=== PATIENT | male | born 1995 | race African-American/Black ===

== ENCOUNTER 2018-03-30 17:20 | Emergency (ER) | payer OTHER ==
[2018-03-30 19:05] LABS: AMORPHOUS SEDIMENT RFX MODERATE (NEGATIVE); KETONE, URINE AUTO RFX NEGATIVE (NEGATIVE); LEUKOCYTE ESTERASE UR AUTO RFX NEGATIVE (NEGATIVE); MUCUS, URINE RFX SMALL (NEGATIVE); NITRITE, URINE AUTO RFX NEGATIVE (NEGATIVE); RBC, URINE AUTO RFX 36 /HPF (0-3); SPECIFIC GRAVITY UR AUTO RFX 1.018 (1.002-1.035); SQUAM EPITHELIAL CELL UR AURFX 0 /HPF (0-6); WBC, URINE AUTO RFX 3 /HPF (0-3)
[2018-03-30 20:29] LABS: CHLAMYDIA DNA AMPLIFICATION POSITIVE (NEGATIVE); GC DNA AMPLIFICATION NEGATIVE (NEGATIVE)
[2018-03-30] MEDS ORDERED: LIDOCAINE 1% MDV 20ML VIAL As Ordered ×2 (20:44)
[2018-03-30] MEDS: cefTRIAXone SOD 1 GM VIAL (J0696) IM ×2 (20:45)
[2018-03-30] MEDS: IBUPROFEN 600 MG TAB PO ×2 (20:53)
== END 2018-03-30 21:36 | disposition home or self-care (01) ==
LOC: M ED 17:20
DX: Z20.2 Contact with and (suspected) exposure to infections with a predominantly sexual mode of transmission (principal); N50.9 Disorder of male genital organs, unspecified
CPT/HCPCS: J0696

== ENCOUNTER 2018-07-17 15:17 | Emergency (ER) | payer OTHER ==
[2018-07-17 20:58] LABS: CHLAMYDIA DNA AMPLIFICATION NEGATIVE (NEGATIVE); GC DNA AMPLIFICATION NEGATIVE (NEGATIVE)
== END 2018-07-17 17:44 | disposition home or self-care (01) ==
LOC: M ED 15:17
DX: N48.1 Balanitis (principal); S30.812A Abrasion of penis, initial encounter; W23.0XXA Caught, crushed, jammed, or pinched between moving objects, initial encounter; Y92.89 Other specified places as the place of occurrence of the external cause
CPT/HCPCS: 87252

== ENCOUNTER 2019-07-16 15:11 | Emergency (ER) | payer OTHER ==
[~2019-07-16] VITALS: Ht 175.3 cm; Wt 76.8 kg
[~2019-07-16 15:11] MED LIST: ACYC400T PO; BACI500O8 TOP; DOXY-350 PO
[2019-07-16 15:12] VITALS: BP 132/60
== END 2019-07-16 16:21 | disposition left against medical advice (07) ==
LOC: M ED 15:11
DX: Z53.21 Procedure and treatment not carried out due to patient leaving prior to being seen by health care provider (principal)

== ENCOUNTER 2019-08-09 10:15 | Emergency (ER) | payer OTHER ==
[~2019-08-09] VITALS: Ht 177.8 cm; Wt 74.1 kg
--- NOTE | 2019-08-09 11:29 | REP ---
Head CT without contrast: History: Trauma. Comparison study: No comparison study. CT findings: Bone window settings demonstrate an intact bony calvarium. There is no evidence of skull fracture or incidental bony calvarial lesion. The visualized paranasal sinuses appear clear. No intraorbital abnormality is seen. On soft tissue window setting images; the lateral, third, and fourth ventricles are normal in size and position. Pardo-white differentiation pattern is normal above and below the tentorium. There are is no evidence of intracranial hemorrhage. No mass, edema, infarction, or midline shift is seen. No extra-axial fluid collection is appreciated. Impression: Negative noncontrast head CT. Electronically Signed by Jamie Meier MD 08/09/2019 11:21 A
--- NOTE | 2019-08-09 11:31 | REP ---
Maxillofacial CT study without contrast: History: Trauma. Findings: No mandibular fracture is appreciated. There is a 1 cm mucous retention cyst in the right maxillary sinus along with some mild mucosal thickening. Paranasal sinuses are otherwise clear. Orbital and paranasal sinus margins are intact. Zygomatic arches are intact. No maxillary fracture is seen. The nasal bone and inferior maxillary spine appear intact. No intraorbital or other facial hematoma is appreciated. Impression: Mild mucosal thickening in the maxillary sinuses. No traumatic abnormality noted. Electronically Signed by Jamie Meier MD 08/09/2019 11:23 A
[2019-08-09 12:44] VITALS: BP 130/84
== END 2019-08-09 12:44 | disposition home or self-care (01) ==
LOC: M ED 10:15
DX: S05.12XA Contusion of eyeball and orbital tissues, left eye, initial encounter (principal); Y04.0XXA Assault by unarmed brawl or fight, initial encounter; Y92.9 Unspecified place or not applicable; Y99.8 Other external cause status

== ENCOUNTER 2021-02-19 09:30 | Emergency (ER) | payer OTHER ==
[~2021-02-19] VITALS: Ht 177.8 cm; Wt 69.7 kg
[~2021-02-19 09:30] MED LIST changes: +ACYC1TAB PO; -ACYC400T PO
[2021-02-19 11:00] LABS: HEMATOCRIT 39.6 % (42.0-52.0); HEMOGLOBIN 13.2 g/dl (13.5-17.5); MEAN CORPUSCULAR HEMOGLOBIN 29.3 pg (27.0-33.0); MEAN CORPUSCULAR HGB CONC 33.3 g/dl (32.0-36.5); PLATELET COUNT, AUTOMATED 378 10^3/uL (150-450); WHITE BLOOD COUNT 9.4 10^3/uL (4.0-10.0)
[2021-02-19] MEDS ORDERED: ISOVUE-370 76% 100ML VIAL As Ordered ONE (11:20)
[2021-02-19 11:26] LABS: ALBUMIN 3.9 GM/DL (3.2-5.2); ATYPICAL LYMPH 3 % (0-5); BILIRUBIN,DIRECT 0.1 MG/DL (0.0-0.2); BILIRUBIN,TOTAL 0.4 MG/DL (0.2-1.0); EOSINOPHILS 5 % (0-3); LYMPHOCYTES 27 % (16-44); MONOCYTES 5 % (0-5); NEUTROPHILS 59 % (28-66); PLATELET ESTIMATE NORMAL (NORMAL); TOTAL PROTEIN 7.1 GM/DL (6.4-8.2)
--- NOTE | 2021-02-19 11:53 | REP ---
INDICATION: bloody stools since Dec, LLQ pain, + on rectal exam. COMPARISON: None. TECHNIQUE: Abdomen/pelvis CT with IV contrast, without bowel contrast. FINDINGS: The visualized lung ko are unremarkable. The hepatic parenchyma, gallbladder, pancreas and spleen are normal size, homogeneous and otherwise unremarkable. The adrenals and kidneys are unremarkable. The abdominal aorta is unremarkable. There is no periaortic adenopathy or mass. There is a minimal volume of intraperitoneal and subcutaneous body fat tissue planes. There is no bowel distention or obstruction. There is wall thickening and mild enhancement of the descending colon and sigmoid colon. This is nonspecific but can represent infectious versus inflammatory colitis in the appropriate clinical setting. Pelvis: The appendix is unremarkable. There is no ascites or adenopathy. There is an ovoid cyst-like structure at the base of the penis measuring 30 x 11 mm, possibly fluid in the penile urethra. IMPRESSION: Wall thickening and slight enhancement of the descending colon and sigmoid colon, nonspecific, but can represent infectious versus inflammatory colitis in the appropriate clinical setting. Ovoid fluid collection at the base of the penis, cyst versus fluid in the penile urethra. No ascites or adenopathy. Minimal intraperitoneal and subcutaneous body fat. <Electronically signed by Mani Caballero > 02/19/21 [id number]
[2021-02-19 13:04] VITALS: BP 144/89
== END 2021-02-19 13:07 | disposition home or self-care (01) ==
LOC: M ED 09:30
DX: K62.5 Hemorrhage of anus and rectum (principal); K63.89 Other specified diseases of intestine; N48.89 Other specified disorders of penis; R63.4 Abnormal weight loss; Z86.19 Personal history of other infectious and parasitic diseases
CPT/HCPCS: 74177; 80047; 80076; 85025; 87505; 99284; Q9967

== ENCOUNTER 2021-02-25 18:15 | Inpatient (IN) | payer OTHER ==
[~2021-02-25] VITALS: Ht 177.8 cm; Wt 79.6 kg
[2021-02-25] MEDS ORDERED: DICYCLOMINE 10 MG CAP PO ONE (20:20)
[2021-02-25 21:28] LABS: HEMOGLOBIN 11.5 g/dl (13.5-17.5); MEAN CORPUSCULAR HEMOGLOBIN 29.4 pg (27.0-33.0); MEAN CORPUSCULAR HGB CONC 32.9 g/dl (32.0-36.5); MEAN CORPUSCULAR VOLUME 89.5 fl (80.0-96.0); PLATELET COUNT, AUTOMATED 376 10^3/uL (150-450); RED BLOOD COUNT 3.91 10^6/uL (4.30-6.10); WHITE BLOOD COUNT 12.2 10^3/uL (4.0-10.0)
[2021-02-25 21:49] LABS: ATYPICAL LYMPH 2 % (0-5); BASOPHILS 1 % (0-1); EOSINOPHILS 5 % (0-3); LYMPHOCYTES 18 % (16-44); MONOCYTES 4 % (0-5); NEUTROPHILS 70 % (28-66); PLATELET ESTIMATE NORMAL (NORMAL)
[2021-02-25] MEDS ORDERED: metroNIDAZOLE (FLAGYL) 500MG TABLET PO ONE (22:00)
[2021-02-25] MEDS ORDERED: CIPROFLOXACIN 500MG TABLET PO ONE (22:00)
[2021-02-25] MEDS ORDERED: ISOVUE-370 76% 100ML VIAL As Ordered ONE (22:48)
--- NOTE | 2021-02-25 22:50 | HPEPDOC ---
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 He was found to have E.coli in Nov but continued to have episodes of bloody stools despite clearing the infection. [facility] he stopped in [place] and then [place] prior to returning to the area last . Last Monday he presented to the ER w concerns that he still has bloody diarrhea. He had a GI panel done that was unremarkable, and was referred to see GI on an out patient basis. Today he returned because over the last day he has had nausea, 8-9 episodes of BRBPR and 3/10 in severity lower abdominal pain. He denies having f/c/v. Despite a good appetite he has lost 16 lbs over the last 4 months. REVIEW OF SYSTEMS: 12-point review of systems negative except as listed in HPI PAST MEDICAL/ SURGICAL HISTORY: reviewed none SOCIAL HISTORY: denies smoking, in the FAMILY HISTORY: reviewed none ALLERGIES: Please see below. HOME MEDICATIONS: Please see below. PHYSICAL EXAMINATION: Vital Signs Date Time Temp Pulse Resp B/P (MAP) Pulse Ox O2 Delivery O2 Flow Rate FiO2 02/25/21 18:16 98.9 90 20 171/91 (117) 100 Room Air GENERAL APPEARANCE: well nourished and developed/ NAD HEENT: EOMI / no scleral icterus / MMM&P CARDIOVASCULAR: RRR/NMRG LUNGS: CTAB on RA ABDOMEN: flat/ soft / tender w palpation of lower abdomen / no rebound tenderness MUSCULOSKELETAL: ROMIx 4 INTEGUMENT: not flushed or diaphoretic NEUROLOGICAL: CN 2-12 intact / speech not dysarthric PSYCHIATRIC: A&Ox 3/ able to understand and follow all commands LABORATORY DATA: 02/25/21 20:19 IMAGING: CT abd/pelvis IMPRESSION: Nonspecific colitis, as described above. MICROBIOLOGY: GI panel 02/19/21 neg / Respiratory panel neg ASSESSMENT: is a 25 yr old M who recently returned from [facility] [place] who has been having BRBPR for several months along with lower abdominal pain and weight loss; he was found to have an acute drop in his Hg and will be admitted for evaluation of acute blood loss anemia. PLAN: 1 Acute blood loss anemia 2/2 GI bleed Plan: admit to medical floor / check orthostats / CLD w IVF / f/u serial Hg prior to determining if we need to consult Gen surg / type & screen / f/u iron studies / start PPI 40mg IV BID for 72 H, then switch to PO after 72 H (to decrease rate of re-bleeding) DVT px w SCDs Dispo: home after at least 2 midnights stay Late entry 455am # SIRS vs Sepsis 2/2 colitis Overnight the patient developed tachycardia. He also had leukocytosis Plan: increase rate of IVF/ start Zosyn / f/u blood cx & lactic acid / f/u fecal calprotectin (suspect he may have IBD) Home Medications Scheduled Budesonide (Budesonide EC) 3 Mg Capdr...er, 3 CAP PO ASDIRECTED 9mg daily for 4weeks, then 6mg daily for 4 weeks, then 3mg daily for 4 weeks. Ciprofloxacin HCl (Cipro) 500 Mg Tablet, 1 TAB PO BID Famotidine (Famotidine) 40 Mg Tablet, 1 TAB PO DAILY Ferrous Sulfate (Ferrous Sulfate) 325 Mg Tablet.dr, 1 TAB PO DAILY Metronidazole (Flagyl) 500 Mg Tablet, 500 MG PO BID Allergies Coded Allergies: No Known Drug Allergies (Verified Allergy, Unknown, 07/16/19) A-FIB/CHADSVASC A-FIB History Current/History of A-Fib/PAF?: No Current PO Anticoag Therapy: No BERNABE BARNETT MD Feb 25, 2021 22:49
[2021-02-25] MEDS: NS 1,000 ML IV SCH (22:59)
[2021-02-25 23:11] LABS: PERCENT SATURATION 7.9 % (19.7-50.0)
--- NOTE | 2021-02-25 23:32 | REPVR ---
PROCEDURE INFORMATION: Exam: CT Abdomen And Pelvis With Contrast Exam date and time: 02/25/2021 10:53 PM Age: 25 years old Clinical indication: Abdominal pain; Localized; Left lower quadrant (llq); Additional info: Llq pain TECHNIQUE: Imaging protocol: Computed tomography of the abdomen and pelvis with contrast. Axial, coronal and sagittal reformatted images were created and reviewed. Radiation optimization: All CT scans at this facility use at least one of these dose optimization techniques: automated exposure control; mA and/or kV adjustment per patient size (includes targeted exams where dose is matched to clinical indication); or iterative reconstruction. Contrast material: ISOVUE 370; Contrast volume: 100 ml; Contrast route: INTRA-ARTERIAL (ARTERIAL); COMPARISON: CT ABD/PEL W/IV CONTRAST ONLY 02/19/2021 11:24 AM FINDINGS: Liver: Unremarkable. Gallbladder and bile ducts: No radiodense gallstones. No biliary ductal dilatation. Pancreas: Unremarkable. Spleen: Unremarkable. Adrenal glands: Normal. No mass. Kidneys and ureters: No mass. No radiodense calculi. No hydronephrosis. Stomach and bowel: Moderate colonic wall thickening with associated mural and pericolonic, extending from the mid transverse colon distally. No obstruction. No pneumatosis. Appendix: Normal. Intraperitoneal space: No free fluid. No organized fluid collection. No free air. Vasculature: Unremarkable. No aneurysm. Lymph nodes: No pathologically enlarged lymph nodes. Urinary bladder: Unremarkable as visualized. Reproductive: Unremarkable. Bones/joints: No acute osseous abnormality. Soft tissues: Unremarkable. IMPRESSION: Nonspecific colitis, as described above. Electronically signed by: Rico Plata On 02/25/2021 23:33:06 PM
[2021-02-26 00:41] VITALS: BP 141/75
[2021-02-26 02:22] VITALS: BP_SYST 110; BP_SYST 134; BP_DIAS 63; BP_DIAS 69
[2021-02-26 02:23] VITALS: BP 124/80
[2021-02-26 03:55] LABS: HEMATOCRIT 29.3 % (42.0-52.0); HEMOGLOBIN 9.8 g/dl (13.5-17.5); MEAN CORPUSCULAR HEMOGLOBIN 29.6 pg (27.0-33.0); MEAN CORPUSCULAR HGB CONC 33.4 g/dl (32.0-36.5); MEAN CORPUSCULAR VOLUME 88.5 fl (80.0-96.0); PLATELET COUNT, AUTOMATED 316 10^3/uL (150-450); RED BLOOD COUNT 3.31 10^6/uL (4.30-6.10); WHITE BLOOD COUNT 12.4 10^3/uL (4.0-10.0)
[2021-02-26 04:12] LABS: BLOOD UREA NITROGEN 9 MG/DL (7-18); CARBON DIOXIDE LEVEL 30 MEQ/L (21-32); CHLORIDE LEVEL 109 MEQ/L (98-107); CREATININE FOR GFR 0.86 MG/DL (0.70-1.30); GLOMERULAR FILTRATION RATE > 60.0 (>60); GLUCOSE, FASTING 100 MG/DL (70-100); POTASSIUM SERUM 3.7 MEQ/L (3.5-5.1); SODIUM LEVEL 141 MEQ/L (136-145)
[2021-02-26] MEDS ORDERED: cefTRIAXone SOD 1 GM in D5W MINI-BAG PLUS 50 ML IV SCH (04:50)
[2021-02-26] MEDS ORDERED: PANTOPRAZOLE 40MG VIAL (C9113 PER 1) IV SCH (06:00)
[2021-02-26 06:03] LABS: HEMATOCRIT 30.4 % (42.0-52.0); HEMOGLOBIN 9.9 g/dl (13.5-17.5); MEAN CORPUSCULAR HGB CONC 32.6 g/dl (32.0-36.5); MEAN CORPUSCULAR VOLUME 89.1 fl (80.0-96.0); PLATELET COUNT, AUTOMATED 326 10^3/uL (150-450); RED BLOOD COUNT 3.41 10^6/uL (4.30-6.10); WHITE BLOOD COUNT 11.9 10^3/uL (4.0-10.0)
[2021-02-26 06:09] LABS: ALBUMIN 2.7 GM/DL (3.2-5.2); ALT/SGPT 17 U/L (12-78); BILIRUBIN,TOTAL 0.3 MG/DL (0.2-1.0); BLOOD UREA NITROGEN 9 MG/DL (7-18); CALCIUM LEVEL 8.8 MG/DL (8.5-10.1); CARBON DIOXIDE LEVEL 29 MEQ/L (21-32); CHLORIDE LEVEL 107 MEQ/L (98-107); CREATININE FOR GFR 0.92 MG/DL (0.70-1.30); GLOMERULAR FILTRATION RATE > 60.0 (>60); GLUCOSE, FASTING 97 MG/DL (70-100); POTASSIUM SERUM 3.9 MEQ/L (3.5-5.1); SODIUM LEVEL 141 MEQ/L (136-145); TOTAL PROTEIN 5.7 GM/DL (6.4-8.2)
[2021-02-26] MEDS: PIPERACILLIN/TAZOBACTAM SOD 3.375 GM in D5W MINI-BAG PLUS 50 ML IV SCH ×2 (06:18→11:39)
[2021-02-26 06:29] LABS: BASOPHILS 1 % (0-1); EOSINOPHILS 5 % (0-3); LYMPHOCYTES 14 % (16-44); MONOCYTES 1 % (0-5); NEUTROPHILS 79 % (28-66); PLATELET ESTIMATE NORMAL (NORMAL)
[2021-02-26 06:47] VITALS: BP 121/65
[2021-02-26] MEDS: NS 1,000 ML IV SCH ×2 (08:27→11:46)
[2021-02-26 10:16] LABS: FOLATE 15.8 NG/ML (>5.4)
[2021-02-26] MEDS ORDERED: FLAG500T PO (11:21)
[2021-02-26] MEDS ORDERED: CIPR-249 PO (11:21)
--- NOTE | 2021-02-26 11:40 | DS.PDOC ---
Discharge Summary General Date of Admission Feb 25, 2021 at 22:45 Date of Discharge 02/26/2021 Attending Physician: SCOTT GARCIA MD Discharge Summary PROCEDURES PERFORMED DURING STAY: None ADMITTING DIAGNOSES: Hematochezia DISCHARGE DIAGNOSES: Pancolitis LGIB COMPLICATIONS/CHIEF COMPLAINT: Rectal Bleeding. 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 He was found to have E.coli in Nov that was treated with antibiotics but continued to have episodes of bloody stools despite clearing the infection. [facility] and then [place] prior to returning to the area 1 week prior to presentation. He had a GI panel done that was unremarkable, and was referred to see GI on an out patient basis but is not until 03/2021. He then returned because over the last day he has had nausea with 8-9 episodes of BRBPR and 3/10 in severity lower abdominal pain without f/c/v with 16 lbs weight loss over the last 4 months. HOSPITAL COURSE: On evaluation he was iron deficiency and anemic to Hgb 9.9, WBC 11, platelets 326, na 141, K 3.9, Cr 0.92, ferritin was 31 and he was given empiric pip/tazo. I consulted surgery this morning and Dr. Ackerman saw him and recommended discharge home with 2 weeks of antibiotics and will see him shortly in the office and schedule a colonoscopy since his GI appt is far in 03/2021. He is now being discharged home with 2w of BID cipro/flagyl and referral to surgery as well as his standing GI appt and close PCP follow up. DISCHARGE MEDICATIONS: Please see below. ALLERGIES: Please see below. PHYSICAL EXAMINATION ON DISCHARGE: VITAL SIGNS: Please see below. GENERAL APPEARANCE: well nourished and developed/ NAD HEENT: EOMI / no scleral icterus / MMM&P CARDIOVASCULAR: RRR/NMRG LUNGS: CTAB on RA ABDOMEN: flat/ soft / tender w palpation of lower abdomen / no rebound tenderness MUSCULOSKELETAL: ROMIx 4 INTEGUMENT: not flushed or diaphoretic NEUROLOGICAL: CN 2-12 intact / speech not dysarthric PSYCHIATRIC: A&Ox 3/ able to understand and follow all commands LABORATORY DATA: Please see below. IMAGING: CT ABD/PEL W/IV CONTRAST ONLY 02/19/2021 11:24 AM FINDINGS: Liver: Unremarkable. Gallbladder and bile ducts: No radiodense gallstones. No biliary ductal dilatation. Pancreas: Unremarkable. Spleen: Unremarkable. Adrenal glands: Normal. No mass. Kidneys and ureters: No mass. No radiodense calculi. No hydronephrosis. Stomach and bowel: Moderate colonic wall thickening with associated mural and pericolonic, extending from the mid transverse colon distally. No obstruction. No pneumatosis. Appendix: Normal. Intraperitoneal space: No free fluid. No organized fluid collection. No free air. Vasculature: Unremarkable. No aneurysm. Lymph nodes: No pathologically enlarged lymph nodes. Urinary bladder: Unremarkable as visualized. Reproductive: Unremarkable. Bones/joints: No acute osseous abnormality. Soft tissues: Unremarkable. IMPRESSION: Nonspecific colitis, as described above. PROGNOSIS: Good ACTIVITY: As tolerated DIET: Regular DISCHARGE PLAN: Home with 2w course of cipro/flagyl, surgery referral, PCP follow up and to keep the scheduled GI appt. DISPOSITION: Home DISCHARGE INSTRUCTIONS: Home with 2w course of cipro/flagyl, surgery referral, PCP follow up and to keep the scheduled GI appt. ITEMS TO FOLLOWUP ON ON OUTPATIENT: Hemorrhagic colitis - Home with 2w course of cipro/flagyl, surgery referral, PCP follow up and to keep the scheduled GI appt. DISCHARGE CONDITION: Stable TIME SPENT ON DISCHARGE: 31 minutes. Vital Signs/I&Os Vital Signs Date Time Temp Pulse Resp B/P (MAP) Pulse Ox O2 Delivery O2 Flow Rate FiO2 02/26/21 06:47 98.0 90 17 121/65 (83) 100 Room Air I&O- Last 24 Hours up to 6 AM 02/26/21 06:00 Intake Total 1300 ml Balance 1300 ml Laboratory Data Labs 24H Laboratory Tests 2 02/25/21 20:19: Neutrophils (%) (Auto) , Nucleated Red Blood Cells % (auto) 0.0, Neutrophils 70H, Lymphocytes (Manual) 18, Monocytes (Manual) 4, Eosinophils (Manual) 5H, Basophils (Manual) 1, Atypical Lymphocytes 2, Platelet Estimate NORMAL 02/25/21 21:09: POC Glucose (Misc Panel) 90, POC Sodium (Misc Panel) 141, POC Potassium (Misc Panel) 3.8, POC Chloride (Misc Panel) 100, POC Total CO2 (Misc Panel) 30.0H, POC Blood Urea Nitrogen (Misc Panel 10, POC Ionized Calcium (Misc Panel) 4.9, POC Creatinine (Misc Panel) 1.0, POC Hematocrit (Misc Panel) 34.0L 02/25/21 21:12: Iron Level 18L, Total Iron Binding Capacity 228L, Transferrin % Saturation 7.9L, Ferritin 31, Vitamin B12 Level 932H, Folate 15.8 02/26/21 03:35: Nucleated Red Blood Cells % (auto) 0.0, Anion Gap 2L, Glomerular Filtration Rate > 60.0, Calcium Level 8.0L 02/26/21 05:28: Neutrophils (%) (Auto) , Nucleated Red Blood Cells % (auto) 0.0, Neutrophils 79H, Lymphocytes (Manual) 14L, Monocytes (Manual) 1, Eosinophils (Manual) 5H, B asophils (Manual) 1, Red Blood Cell Morphology NORMAL, Platelet Estimate NORMAL, Anion Gap 5L, Glomerular Filtration Rate > 60.0, Lactic Acid Level 1.1, Calcium Level 8.8, Total Bilirubin 0.3, Aspartate Amino Transf (AST/SGOT) 8, Alanine Aminotransferase (ALT/SGPT) 17, Alkaline Phosphatase 54, Total Protein 5.7L, Albumin 2.7L, Albumin/Globulin Ratio 0.9 02/26/21 07:45: CBC/BMP Laboratory Tests 02/25/21 20:19 02/26/21 03:35 02/26/21 05:28 02/26/21 09:34 Microbiology Microbiology 02/26/21 Stool Occult Blood (MIAH) - Final, Complete 02/26/21 Blood Culture, Received Pending 02/25/21 Respiratory Virus Panel (PCR) (MIA[facility]) - Final, Complete Discharge Medications Scheduled Ciprofloxacin HCl (Cipro) 500 Mg Tablet, 1 TAB PO BID Metronidazole (Flagyl) 500 Mg Tablet, 500 MG PO BID Allergies Coded Allergies: No Known Drug Allergies (Verified Allergy, Unknown, 07/16/19) SCOTT GARCIA MD Feb 26, 2021 11:40
--- NOTE | 2021-02-26 11:41 | IPNPDOC ---
Text Note Date of Service The patient was seen on 02/26/21. NOTE SUBJECTIVE: -No acute complaints. 1 Bm with bloody elements overnight GENERAL APPEARANCE: well nourished and developed/ NAD HEENT: EOMI,no scleral icterus, MMM CARDIOVASCULAR: RRR, no m/r/g LUNGS: CTAB on RA ABDOMEN: Hyperactive sounds this AM, flat, soft, tender RLQ and LLQ, no rebound tenderness SKIN: no erythema, rashes, angular cheilosis or sores NEUROLOGICAL: CN 2-12 intact, speech not dysarthric,gross nonfocal PSYCHIATRIC: A&Ox 3, able to understand and follow all commands LABORATORY DATA: Hgb 9.9 WBC 5.9 platelets 235 na 141 K 3.9 Cr 0.92 Ferritin 31 IMAGING: CT abd/pelvis IMPRESSION: Nonspecific colitis, as described above. MICROBIOLOGY: GI panel 02/19/21 neg / Respiratory panel neg ASSESSMENT: is a 25 yr old M who recently returned from [place] who has been having BRBPR for several months along with lower abdominal pain and weight loss; he was found to have an acute drop in his Hg and will be admitted for evaluation of acute blood loss anemia. PLAN: 1 Acute blood loss anemia 2/2 GI bleed -consulted Gen surg -type & screen -will need GI follow up for IBD workup -f/u fecal calprotectin -needs Fe supplementation DVT px w SCDs Dispo: home with close PCP f/u, surgery referral and GI f/u VS,Fishbone, I+O VS, Fishbone, I+O Laboratory Tests 02/25/21 20:19 02/26/21 03:35 02/26/21 05:28 Vital Signs Date Time Temp Pulse Resp B/P (MAP) Pulse Ox O2 Delivery O2 Flow Rate FiO2 02/26/21 06:47 98.0 90 17 121/65 (83) 100 Room Air I&O- Last 24 Hours up to 6 AM0 02/26/21 06:00 Intake Total 1300 ml Balance 1300 ml SCOTT GARCIA MD Feb 26, 2021 09:35
[2021-02-26] MEDS ORDERED: FERR325T3 PO (11:42)
[2021-02-26] MEDS ORDERED: FAMO40TA3 PO (11:42)
--- NOTE | 2021-02-26 11:48 | CR ---
CONSULTATION DATE: 02/25/2021 CHIEF COMPLAINT: Rectal bleeding. HISTORY OF PRESENT ILLNESS: The patient is a 25-year-old male who presents with a history of rectal bleeding he has had since around September. He was diagnosed with E. coli in November, given 72 hours of antibiotics, and about a month later he was placed on another 72 hour course of antibiotics. However, the bleeding has never completely stopped. He has been off of all antibiotics for about a month and a half now still having bloody stools about three times a day. Occasionally, he will have 3/10 lower abdominal pains associated with it normally during the bowel movements only and no other complaints. No trauma to the abdomen. He has had multiple travel including [place], [place], and [place], but all of that was since this started. Currently he denies any fevers or chills. No change in appetite. No prior colonoscopy and he has never seen a GI physician before. PAST MEDICAL HISTORY: Reviewed and negative. PAST SURGICAL HISTORY: Reviewed and negative. SOCIAL HISTORY: Negative. FAMILY HISTORY: Non-contributory. ALLERGIES: None. HOME MEDICATIONS: Please see med rec. REVIEW OF SYSTEMS: Pertinent positives and negatives as stated in the HPI. PHYSICAL EXAMINATION: GENERAL: Alert and oriented x3, in no acute distress. VITAL SIGNS: Temperature 98, pulse 90, respirations 17, blood pressure 121/65, pulse ox 100% on room air. HEENT: Pupils equal, round, reactive to light and accommodation. HEART: S1, S2. Regular rate and rhythm. LUNGS: Clear to auscultation bilaterally. ABDOMEN: Soft, nontender, and nondistended. EXTREMITIES: No clubbing, cyanosis, or edema. LABORATORY DATA: White count 11.9, hemoglobin 10.6, platelets 326,000. Potassium 3.9, creatinine 0.92. IMAGING DATA: CT abdomen and pelvis done at the emergency room yesterday shows moderate colonic wall thickening with associated mural and pericolonic inflammation extending from the mid transverse colon distally with no obstruction and no pneumatosis. ASSESSMENT AND PLAN: The patient is a 25-year-old male with a nonspecific left-sided colitis. He has likely had this for multiple months. He has had a history of Escherichia coli (E. coli) in his stool back in November; however, he was only given 72 hours of antibiotics, which was probably no an appropriate course of treatment at the time. At this point, a chronic infectious colitis versus inflammatory bowel disease are both possibilities. Recommendation is to start him on Cipro or Flagyl p.o. He can be discharged home today. We will keep him on antibiotics for a couple of weeks to try and calm this inflammation down some. I will see him in the office next week and plan for a colonoscopy on the 10 of March as long as he is able to get the referral sent over from his primary in time. All of his questions are answered and I will plan to see him in the office next week.
[2021-02-26] MEDS ORDERED: BUDE3CAP PO (12:01)
== END 2021-02-26 13:00 | disposition home health service (06) | DRG 386 ==
LOC: M ED 18:15 → M ED INP 22:45 → ENRESERV 23:39 → M MS5PR 02-26 00:35
PROVIDERS: ADMIT Internal Medicine; ATTEND Internal Medicine
DX: K51.011 Ulcerative (chronic) pancolitis with rectal bleeding (principal); D62 Acute posthemorrhagic anemia; Z79.899 Other long term (current) drug therapy

== ENCOUNTER 2021-04-19 19:23 | Inpatient (IN) | payer OTHER ==
[~2021-04-19] VITALS: Ht 177.8 cm; Wt 67.4 kg
[~2021-04-19 19:23] MED LIST changes: +BUDE3CAP PO; +CIPR-249 PO; +FAMO40TA3 PO; +FERR325T3 PO; +FLAG500T PO
[2021-04-19] MEDS ORDERED: PRED20TA PO (19:32)
[2021-04-19] MEDS ORDERED: HUMI40KI2 SC (19:32)
[2021-04-19] MEDS ORDERED: NS 1,000 ML IV ONE (20:10)
[2021-04-19 20:22] LABS: BASO % 0.1 % (0.0-1.0); LYMPH # 0.7 10^3/uL (1.5-5.0); LYMPH % 8.5 % (24.0-44.0); MEAN CORPUSCULAR HEMOGLOBIN 21.4 pg (27.0-33.0); MEAN CORPUSCULAR HGB CONC 28.1 g/dl (32.0-36.5); MEAN CORPUSCULAR VOLUME 76.4 fl (80.0-96.0); MONO # 0.1 10^3/uL (0.0-0.8); MONO % 1.1 % (2.0-8.0); NEUTROPHILS # 7.4 10^3/uL (1.5-8.5); NEUTROPHILS % 89.9 % (36.0-66.0); PLATELET COUNT, AUTOMATED 601 10^3/uL (150-450); RED BLOOD COUNT 1.82 10^6/uL (4.30-6.10); WHITE BLOOD COUNT 8.2 10^3/uL (4.0-10.0)
[2021-04-19 20:32] LABS: HEMATOCRIT 13.9 % (42.0-52.0); HEMOGLOBIN 3.9 g/dl (13.5-17.5)
[2021-04-19 20:50] LABS: BLOOD UREA NITROGEN 14 MG/DL (7-18); CARBON DIOXIDE LEVEL 29 MEQ/L (21-32); CHLORIDE LEVEL 104 MEQ/L (98-107); CREATININE FOR GFR 1.03 MG/DL (0.70-1.30); GLOMERULAR FILTRATION RATE > 60.0 (>60); GLUCOSE, FASTING 105 MG/DL (70-100); POTASSIUM SERUM 4.7 MEQ/L (3.5-5.1); SODIUM LEVEL 137 MEQ/L (136-145)
[2021-04-19] MEDS ORDERED: HUMI80KI SQ (20:50)
[2021-04-19 22:39] LABS: RSV AMPLIFICATION NEGATIVE (NEGATIVE)
[2021-04-19] MEDS ORDERED: NS 1,000 ML IV SCH (23:40)
[2021-04-19] MEDS ORDERED: MAALOX 30 ML SUSP *UDC PO PRN (23:40)
[2021-04-19] MEDS ORDERED: ACETAMINOPHEN TAB 650MG DOSE (2X325MG) PO PRN (23:40)
--- NOTE | 2021-04-19 23:43 | HPEPDOC ---
[facility] Medical History & Physical Date of Admission Apr 19, 2021 Date of Service: Apr 19, 2021 History and Physical CHIEF COMPLAINT: Weakness HISTORY OF PRESENT ILLNESS: 26-year-old male recent diagnosis of ulcerative colitis by colonoscopy with Dr. Ackerman who presents because of weakness and fatigue to the point where he was feeling like passing out several times worsening over the past several days to weeks. He tells me that he was recently followed up with Dr. Henao roller varnisher his mesalamine was stopped and he was started on Humira 12 days ago approximately and since then he's noticed his diarrhea which she was to happen 3 times daily at least with blood has significantly reduced and he hasn't had diarrhea over the past several days. He still does notice some blood streaking in his stools. He endorses some shortness of breath on exertion lately. He denies chest pain. Denies abdominal pain. Endorses mild headache. In the emergency department patient was found to have a hemoglobin of 3.9 without obvious active bleeding suspected to be a chronic bleed due to the bleeding with the diarrhea from ulcerative colitis. Blood transfusion was initiated in the ED and patient will be admitted to the hospital service for further medical workup and management. PAST MEDICAL/SURGICAL HISTORY: Ulcerative colitis SOCIAL HISTORY: Denies alcohol use Denies tobacco use Denies illicit drug use FAMILY HISTORY: Reviewed and none contributory to this admission. Denies history of inflammatory bowel disease in his family such as Crohn's disease and ulcerative colitis ALLERGIES: Please see below. REVIEW OF SYSTEMS: 10 point review of systems complete all negative otherwise stated in HPI HOME MEDICATIONS: Please see below. PHYSICAL EXAMINATION: Constitutional: Awake and alert, in no apparent distress ENT: Sclera are clear. Mucosa is pale Respiratory: Lungs CTA bilaterally. No respiratory distress. Cardiovascular: RRR S1 and S2 are normal, no murmur Gastrointestinal: Abdomen is soft, non distended, non tender, BS present. Musculoskeletal: No lower extremity edema. Neurologic: No focal neurological deficit. Mental Status: A&O x3, normal affect Skin: Warm, dry LABORATORY DATA: See below. IMAGING: See chart MICROBIOLOGY: Please see below. ASSESSMENT/PLAN 26-year-old male recently diagnosed with ulcerative colitis presents with weakness found to have a hemoglobin of 3.9 suspected to be due to ulcerative colitis recent flareup with diarrhea and bleeding. Patient admitted for blood transfusion and further workup and management. # Symptomatic anemia: Presumed to be from chronic GI bleed from bloody diarrhea due to ulcerative colitis. Hgb significantly decreased from 2 months ago down to 3.9 at time of admission from 10.6 earlier. He does endorse small amount of streaks of blood in his stools until recently but tells me that his diarrhea with large volume bleeding has stopped since starting Humira. One unit of blood transfusion started in the ED. 2 more units of blood were ordered. Recheck H&H after blood was given. Protonix IV twice a day. IVFs. # Ulcerative colitis flare: Dr Nelson (GI) is not blocker and cutter contact lens today but was kind enough to offer me some recommendations in terms of management. He recommended IV solumdrol IV twice a day followed by transition to oral prednisone at time of discharge. He states that since starting Humira 12 days ago his ulcerative coli tis diarrhea has completely resolved now and he only sees a small amount of blood in his stools. This is in assuring sign and if his hemoglobin recovers and remained stable he can probably follow up with his roller varnisher Dr. Henao. # DVT prophylaxis: SCDs/TEDs only due to GI bleeding. [facility] Vital Signs Vital Signs Date Time Temp Pulse Resp B/P (MAP) Pulse Ox O2 Delivery O2 Flow Rate FiO2 04/19/21 22:45 97 14 142/65 (90) 100 Room Air 04/19/21 19:25 98.5 Laboratory Data Labs 24H Laboratory Tests 2 04/19/21 20:14: Immature Granulocyte % (Auto) 0.4, Neutrophils (%) (Auto) 89.9H, Lymphocytes (%) (Auto) 8.5L, Monocytes (%) (Auto) 1.1L, Eosinophils (%) (Auto) 0.0, Basophils (%) (Auto) 0.1, Neutrophils # (Auto) 7.4, Lymphocytes # (Auto) 0.7L, Monocytes # (Auto) 0.1, Eosinophils # (Auto) 0.0, Basophils # (Auto) 0.0, Nucleated Red Blood Cells % (auto) 0.0, Anion Gap 4L, Glomerular Filtration Rate > 60.0, Calcium Level 9.0 04/19/21 21:36: Coronavirus (COVID-19)(PCR) NEGATIVE, Influenza Type A (RT-PCR) NEGATIVE, Influenza Type B (RT-PCR) NEGATIVE, Respiratory Syncytial Virus (PCR) NEGATIVE CBC/BMP Laboratory Tests 04/19/21 20:14 Home Medications Scheduled Adalimumab (Humira(Cf) Pen Crohn's-Uc-Hs) 80 Mg/0.8 Ml Pen.[email or web address], 80 MG SQ Q2WK EVERY OTHER MONDAY Prednisone (Prednisone) 20 Mg Tablet, 40 MG PO DAILY Allergies Coded Allergies: No Known Drug Allergies (Verified Allergy, Unknown, 03/09/21) A-FIB/CHADSVASC A-FIB History Current/History of A-Fib/PAF?: No DWIGHT APONTE MD Apr 19, 2021 23:43
[2021-04-20] VITALS (15 sets, daily range): BP systolic 127–156; BP diastolic 58–75
[2021-04-20] MEDS: methylPREDNISolone 125MG 2ML VIAL IV SCH ×2 (00:08→11:34)
[2021-04-20] MEDS: PANTOPRAZOLE 40MG VIAL (C9113 PER 1) IV SCH ×3 (00:08→20:50)
--- NOTE | 2021-04-20 05:40 | ECGEPIP ---
[facility] - ED Test Date: 2021-04-19 Pat Name: EMMANUELLE RAY Department: Room: - Gender: Male [employer]: LINA : 1995 Requested By: JUAN Gomez Order Number: [id number] Reading MD: Juan Way Measurements Intervals [place] Rate: 95 P: 12 NC: 138 QRS: 20 QRSD: 88 T: 13 QT: 328 QTc: 412 Interpretive Statements Normal sinus rhythm Comparison tracing not on file Electronically Signed on 04-20-2021 5:40:[address]
[2021-04-20 09:56] LABS: HEMATOCRIT 22.9 % (42.0-52.0); HEMOGLOBIN 7.2 g/dl (13.5-17.5); MEAN CORPUSCULAR HEMOGLOBIN 25.2 pg (27.0-33.0); MEAN CORPUSCULAR HGB CONC 31.4 g/dl (32.0-36.5); MEAN CORPUSCULAR VOLUME 80.1 fl (80.0-96.0); PLATELET COUNT, AUTOMATED 581 10^3/uL (150-450); RED BLOOD COUNT 2.86 10^6/uL (4.30-6.10); WHITE BLOOD COUNT 11.5 10^3/uL (4.0-10.0)
[2021-04-20 10:16] LABS: BLOOD UREA NITROGEN 10 MG/DL (7-18); CALCIUM LEVEL 9.3 MG/DL (8.5-10.1); CARBON DIOXIDE LEVEL 26 MEQ/L (21-32); CHLORIDE LEVEL 104 MEQ/L (98-107); GLOMERULAR FILTRATION RATE > 60.0 (>60); GLUCOSE, FASTING 170 MG/DL (70-100); MAGNESIUM LEVEL 2.9 MG/DL (1.8-2.4); POTASSIUM SERUM 4.5 MEQ/L (3.5-5.1); SODIUM LEVEL 137 MEQ/L (136-145)
--- NOTE | 2021-04-20 13:03 | IPNPDOC ---
Text Note Date of Service The patient was seen on 04/20/21. NOTE Subjective: Patient seen and examined at bedside. No acute overnight events reported. Patient voices no new medical complaints this morning. Objective: General: NAD, lying comfortably in bed HEENT: NC/AT, EOMI Lungs: CTA B/L Heart: +S1S2, RRR Abd: soft, NT, +BS Ext: no edema A/P: 26-year-old male recently diagnosed with ulcerative colitis presents with weakness found to have a hemoglobin of 3.9 suspected to be due to ulcerative colitis recent flareup with diarrhea and bleeding. Patient admitted for blood transfusion and further workup and management. # Symptomatic anemia: Presumed to be from chronic GI bleed from bloody diarrhea due to ulcerative colitis. Hgb significantly decreased from 2 months ago down to 3.9 at time of admission from 10.6 earlier. He does endorse small amount of streaks of blood in his stools until recently but tells me that his diarrhea with large volume bleeding has stopped since starting Humira. - s/p 3 units PRBC - serial H/H # Ulcerative colitis flare - previously discussed with Dr. Nelson - solumedrol BID, transition to prednisone on discharge - started Humira 13 days ago - next dose scheduled for tomorrow # DVT prophylaxis: SCDs/TEDs only due to GI bleeding. VS,Fishbone, I+O VS, Fishbone, I+O Laboratory Tests 04/19/21 20:14 04/20/21 09:28 Vital Signs Date Time Temp Pulse Resp B/P (MAP) Pulse Ox O2 Delivery O2 Flow Rate FiO2 04/20/21 12:00 98.9 91 18 131/61 (84) 100 Room Air I&O- Last 24 Hours up to 6 AM 04/20/21 06:00 Intake Total 1800 ml Output Total 525 ml Balance 1275 ml MICHELLE TALBERT MD Apr 20, 2021 13:03
[2021-04-20 18:23] LABS: HEMATOCRIT 22.7 % (42.0-52.0); HEMOGLOBIN 7.2 g/dl (13.5-17.5)
[2021-04-21] VITALS (9 sets, daily range): BP systolic 116–145; BP diastolic 61–76
[2021-04-21] MEDS: methylPREDNISolone 125MG 2ML VIAL IV SCH ×2 (00:31→12:20)
[2021-04-21 06:20] LABS: HEMATOCRIT 22.8 % (42.0-52.0); HEMOGLOBIN 7.1 g/dl (13.5-17.5); MEAN CORPUSCULAR HEMOGLOBIN 25.1 pg (27.0-33.0); MEAN CORPUSCULAR HGB CONC 31.1 g/dl (32.0-36.5); MEAN CORPUSCULAR VOLUME 80.6 fl (80.0-96.0); PLATELET COUNT, AUTOMATED 582 10^3/uL (150-450); RED BLOOD COUNT 2.83 10^6/uL (4.30-6.10); WHITE BLOOD COUNT 17.4 10^3/uL (4.0-10.0)
[2021-04-21 06:49] LABS: BLOOD UREA NITROGEN 13 MG/DL (7-18); CALCIUM LEVEL 9.1 MG/DL (8.5-10.1); CARBON DIOXIDE LEVEL 29 MEQ/L (21-32); CHLORIDE LEVEL 105 MEQ/L (98-107); CREATININE FOR GFR 0.91 MG/DL (0.70-1.30); GLOMERULAR FILTRATION RATE > 60.0 (>60); GLUCOSE, FASTING 126 MG/DL (70-100); POTASSIUM SERUM 4.5 MEQ/L (3.5-5.1); SODIUM LEVEL 139 MEQ/L (136-145)
[2021-04-21 07:56] LABS: FERRITIN 22 NG/ML (26-388); IRON (FE) 17 UG/DL (65-175); LDH LACTATE DEHYDROGENASE 167 U/L (87-241); TOTAL IRON BINDING CAPACITY 424 UG/DL (250-450)
--- NOTE | 2021-04-21 09:50 | IPNPDOC ---
Text Note Date of Service The patient was seen on 04/21/21. NOTE Subjective: Patient seen and examined at bedside. No acute overnight events reported. Patient voices no new medical complaints this morning. Objective: General: NAD, lying comfortably in bed HEENT: NC/AT, EOMI Lungs: CTA B/L Heart: +S1S2, RRR Abd: soft, NT, +BS Ext: no edema A/P: 26-year-old male recently diagnosed with ulcerative colitis presents with weakness found to have a hemoglobin of 3.9 suspected to be due to ulcerative colitis recent flareup with diarrhea and bleeding. Patient admitted for blood transfusion and further workup and management. # Symptomatic anemia - s/p 3 units PRBC - Hgb improved from 3.9 to 7.2 yesterday, 7.1 today - iron studies noted - iron deficiency - patient notes significant nsaid abuse for headaches - discussed with surgery/GI - plan for EGD today - heme c/s pending - called left voicemail/text - serial H/H #thrombocytosis/leukocytosis # Ulcerative colitis flare - discussed with Dr. Nelson - solumedrol BID, transition to prednisone on discharge - started Humira two weeks ago - next dose scheduled for today # DVT prophylaxis: SCDs/TEDs only due to GI bleeding, EGD today, serial H/H VS,Fishbone, I+O VS, Fishbone, I+O Laboratory Tests 04/20/21 18:01 04/21/21 06:01 Vital Signs Date Time Temp Pulse Resp B/P (MAP) Pulse Ox O2 Delivery O2 Flow Rate FiO2 04/21/21 07:56 98.8 84 18 137/68 (91) 99 Room Air I&O- Last 24 Hours up to 6 AM 04/21/21 06:00 Intake Total 1280 ml Output Total 450 ml Balance 830 ml MICHELLE TALBERT MD Apr 21, 2021 09:50
[2021-04-21] MEDS: PANTOPRAZOLE 40MG VIAL (C9113 PER 1) IV SCH ×2 (10:13→21:17)
[2021-04-21 11:23] LABS: VITAMIN B12 LEVEL 733 PG/ML (247-911)
[2021-04-21] MEDS ORDERED: LIDOCAINE 2% 100MG/5ML SDV (FOR ANES.) As Ordered ONE (14:40)
[2021-04-21] MEDS ORDERED: propofoL 200 MG/20 ML VIAL As Ordered ONE (14:40)
[2021-04-21] MEDS ORDERED: fentaNYL 100 MCG/2 ML INJECTION (J3010) As Ordered ONE (14:41)
--- NOTE | 2021-04-21 14:54 | ROOR ---
Patient Name: Cathy Guajardo Procedure Date: 04/21/2021 2:40 PM Date of : 1995 Age: 26 Room: [facility] Gender: Male Note Status: Finalized Procedure: Upper GI endoscopy Indications: Unexplained iron deficiency anemia, Recent gastrointestinal bleeding, Gastrointestinal bleeding of unknown origin Providers: Yong Henao MD Referring MD: 2. Inpatient 2. Inpatient, KISHA BASILIO MD Requesting Provider: Medicines: Monitored Anesthesia Care Complications: No immediate complications. Procedure: Pre-Anesthesia Assessment: - The heart rate, respiratory rate, oxygen saturations, blood pressure, adequacy of pulmonary ventilation, and response to care were monitored throughout the procedure. The Endoscope was introduced through the mouth, and advanced to the second part of duodenum. The upper GI endoscopy was accomplished without difficulty. The patient tolerated the procedure well. Findings: The Z-line was regular and was found 40 cm from the incisors. No other significant abnormalities were identified in a careful examination of the stomach. The exam of the duodenum was otherwise normal. Impression: - Z-line regular, 40 cm from the incisors. - No specimens collected. - The examination was otherwise normal. Recommendation: - Patient has a contact number available for emergencies. The signs and symptoms of potential delayed complications were discussed with the patient. Return to normal activities tomorrow. Written discharge instructions were provided to the patient. - Resume regular diet. - Discharge patient to home. - Continue present medications. - Return to referring physician. - The findings and recommendations were discussed with the patient's family. Procedure Code(s): --- Professional --- 80973, Esophagogastroduodenoscopy, flexible, transoral; diagnostic, including collection of specimen(s) by brushing or washing, when performed (separate procedure) Diagnosis Code(s): --- Professional --- D50.9, Iron deficiency anemia, unspecified K92.2, Gastrointestinal hemorrhage, unspecified CPT copyright 2019 [employer]. All rights reserved. The codes documented in this report are preliminary and upon musculoskeletal physician review may be revised to meet current compliance requirements. Yong Henao MD Yong Henao MD 04/21/2021 2:53:33 PM Electronically signed by Yong Henao MD Number of Addenda: 0 Note Initiated On: 04/21/2021 2:40 PM Estimated Blood Loss: Estimated blood loss: none.
[2021-04-21] MEDS: FERROUS SULFATE 325MG TAB PO SCH ×2 (15:36→21:17)
[2021-04-21] MEDS: ASCORBIC ACID 500 MG TAB PO SCH ×2 (15:36→21:17)
[2021-04-22] VITALS (7 sets, daily range): BP systolic 119–133; BP diastolic 62–78
[2021-04-22 03:10] LABS: HEMATOCRIT 27.8 % (42.0-52.0); HEMOGLOBIN 8.7 g/dl (13.5-17.5); MEAN CORPUSCULAR HGB CONC 32.2 g/dl (32.0-36.5); MEAN CORPUSCULAR VOLUME 80.6 fl (80.0-96.0); PLATELET COUNT, AUTOMATED 494 10^3/uL (150-450); RED BLOOD COUNT 3.35 10^6/uL (4.30-6.10); WHITE BLOOD COUNT 18.8 10^3/uL (4.0-10.0)
[2021-04-22 03:38] LABS: ALBUMIN 3.3 GM/DL (3.2-5.2); ALT/SGPT 48 U/L (12-78); BILIRUBIN,TOTAL 0.8 MG/DL (0.2-1.0); BLOOD UREA NITROGEN 15 MG/DL (7-18); CALCIUM LEVEL 8.5 MG/DL (8.5-10.1); CARBON DIOXIDE LEVEL 26 MEQ/L (21-32); CHLORIDE LEVEL 107 MEQ/L (98-107); GLOMERULAR FILTRATION RATE > 60.0 (>60); GLUCOSE, FASTING 96 MG/DL (70-100); POTASSIUM SERUM 4.4 MEQ/L (3.5-5.1); SODIUM LEVEL 140 MEQ/L (136-145); TOTAL PROTEIN 6.7 GM/DL (6.4-8.2)
[2021-04-22 08:38] LABS: HAPTOGLOBIN 187 mg/dL (17-317); TRANSFERRIN 359 mg/dL (177-329)
[2021-04-22] MEDS ORDERED: predniSONE 20 MG TAB PO SCH (09:00)
[2021-04-22] MEDS: ASCORBIC ACID 500 MG TAB PO SCH (09:58)
[2021-04-22] MEDS: FERROUS SULFATE 325MG TAB PO SCH (09:58)
[2021-04-22] MEDS ORDERED: ASCO50TA PO (12:35)
--- NOTE | 2021-04-22 12:55 | DS.PDOC ---
Discharge Summary General Date of Admission Apr 19, 2021 at 23:38 Date of Discharge 04/22/2021 Discharge Summary PROCEDURES PERFORMED DURING STAY: EGD DISCHARGE DIAGNOSES: #symptomatic anemia COMPLICATIONS/CHIEF COMPLAINT: Rectal Bleeding, Symptomatic Anemia. HISTORY OF PRESENT ILLNESS: 26-year-old male with history of ulcerative colitis with poor response to steroids and mesalamine. Recently started 2 weeks before admission on Humira over the last 2 weeks. Patient complains of shortness of breath, dyspnea on exertion, headaches. On evaluation in the emergency room, found to be anemic with hemoglobin of 3.9. HOSPITAL COURSE: Patient was admitted for further evaluation. He received transfusion total of 5 units of packed red blood cells. Times related to his anemia, resolved. Patient endorsed significant NSAID use related to headaches from likely from his symptomatic anemia. Patient was seen in consultation by GI and underwent EGD for concerns of possible upper GI bleed. . His EGD was unrevea ling. Case was also discussed with hematology recommendations for IV iron, 1 dose while inpatient and repeat dose as outpatient. DISCHARGE MEDICATIONS: Please see below. ALLERGIES: Please see below. PHYSICAL EXAMINATION ON DISCHARGE: VITAL SIGNS: Please see below. GENERAL: NAD, lying comfortably in bed HEENT: NC/AT, EOMI Lungs: CTA B/L Heart: +S1S2, RRR Abd: soft, NT, +BS Ext: no edema LABORATORY DATA: Please see below. ACTIVITY: [As tolerated]. DISPOSITION: Discharge home DISCHARGE INSTRUCTIONS: 1. Follow up with primary care provider in 3-5 days. 2. Follow-up with hematology in 7-10 days. 3. Follow up with gastroenterology as scheduled. DISCHARGE CONDITION: [Stable]. TIME SPENT ON DISCHARGE: 35 minutes. Vital Signs/I&Os Vital Signs Date Time Temp Pulse Resp B/P (MAP) Pulse Ox O2 Delivery O2 Flow Rate FiO2 04/22/21 08:00 98.2 79 18 128/77 (94) 100 Room Air I&O- Last 24 Hours up to 6 AM 04/22/21 06:00 Intake Total 2220 ml Output Total 200 ml Balance 2020 ml Laboratory Data Labs 24H Laboratory Tests 2 04/22/21 03:00: Nucleated Red Blood Cells % (auto) 0.1H, Anion Gap 7L, Glomerular Filtration Rate > 60.0, Calcium Level 8.5, Total Bilirubin 0.8, Aspartate Amino Transf (AST/SGOT) 12, Alanine Aminotransferase (ALT/SGPT) 48, Alkaline Phosphatase 43L, Total Protein 6.7, Albumin 3.3, Albumin/Globulin Ratio 1.0 04/22/21 10:10: CBC/BMP Laboratory Tests 04/22/21 03:00 Microbiology Microbiology 04/22/21 Blood Culture, Received Pending 04/22/21 Blood Culture, Received Pending Discharge Medications Scheduled Adalimumab (Humira(Cf) Pen Crohn's-Uc-Hs) 80 Mg/0.8 Ml Pen.ij.kit, 80 MG SQ Q2WK, (Reported) EVERY OTHER MONDAY Ascorbic Acid (Vitamin C) 500 Mg Tablet, 500 MG PO BID Prednisone (Prednisone) 20 Mg Tablet, 40 MG PO DAILY, (Reported) Allergies Coded Allergies: No Known Drug Allergies (Verified Allergy, Unknown, 03/09/21) MICHELLE TALBERT MD Apr 22, 2021 12:55
[2021-04-22] MEDS ORDERED: FERRIC CARBOXYMALTOSE INJ 750 MG, VIAL MATE ADAPTER 1 EACH in NS 250 ML IV ONE (15:00)
[2021-04-27 15:08] LABS: PARVOVIRUS B19 QUANT PCR Negative copies/mL (Negative)
== END 2021-04-22 16:07 | disposition home or self-care (01) | DRG 812 ==
LOC: M ED 19:23 → M ED INP 23:38 → M PCU 04-20 03:54
PROVIDERS: ADMIT Family Medicine; ATTEND Internal Medicine
PROC: 30233N1 Transfusion of Nonautologous Red Blood Cells into Peripheral Vein, Percutaneous Approach (ICD-10-PCS; principal; 2021-04-20)
PROC: 0DJ08ZZ Inspection of Upper Intestinal Tract, Via Natural or Artificial Opening Endoscopic (ICD-10-PCS; 2021-04-21)
DX: D64.9 Anemia, unspecified (principal); K51.911 Ulcerative colitis, unspecified with rectal bleeding; Z79.899 Other long term (current) drug therapy

== ENCOUNTER → 2021-09-24 | Outpatient (REF) ==
[~2021-09-24] MED LIST changes: +ASCO50TA PO; +HUMI40KI2 SC; +HUMI80KI SQ; +PRED20TA PO; +VITMTA PO
--- NOTE | 2021-09-24 10:40 | REP ---
INDICATION: PAIN/SOB. COMPARISON: None. TECHNIQUE: Four views each hand FINDINGS: The joint spaces are symmetric and relatively well maintained. There is no evidence of acute fracture or destructive osseous lesion. 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 IMPRESSION: No acute abnormality bilateral <Electronically signed by Vlad Mehta > 09/24/21 [id number]
--- NOTE | 2021-09-24 10:44 | REP ---
INDICATION: PAIN/SOB. COMPARISON: None. TECHNIQUE: PA and lateral FINDINGS: The superior mediastinal structures are midline. The cardiac silhouette is unremarkable in size, shape, and position. The diaphragmatic surfaces of the lungs are regular, and the costophrenic angles are clear. The pulmonary ko are clear. The imaged osseous structures are intact. IMPRESSION: There is no acute cardiopulmonary disease. <Electronically signed by Vlad Mehta > 09/24/21 [id number]
== END ==
LOC: M PLAIMG 09:42
PROVIDERS: ATTEND Internal Medicine
DX: R09.02 Hypoxemia (principal); M79.642 Pain in left hand; M79.641 Pain in right hand